=== PATIENT | male | born 1950 | race Caucasian/White ===

== ENCOUNTER 2017-01-30 18:00 | Emergency (ER) | payer MEDICARE ==
--- NOTE | 2017-02-05 13:58 | ER ---
ADMIT: 01/30/2017 RM/LOC: ER [facility] MR#: [id number] [address] [facility] [address] [place], [place] [id number] YAMILKA STORNG [address] [place] [address] Emergency Room Report SEX: M AGE: 66 : 1950 DATE: 01/30/2017 ADDENDUM: CHIEF COMPLAINT: Vertigo. HISTORY OF PRESENT ILLNESS: This is a 66-year-old male who has a history of heart disease and diabetes. He has history of having a CABG and aortic aneurysm. About 4:30 this afternoon, he had sudden onset of dizziness. He felt the room was spinning. He started vomiting. He vomited 6 times from the ER to the ER. COURSE IN THE EMERGENCY ROOM: I did give him Zofran 8 mg IV, Valium 2 mg IV, and Reglan 10 mg IV. He feels actually quite a bit better. I am prescribing him meclizine and Reglan to go home with. CT of his head was negative for any acute findings. CBC is normal except for a hemoglobin of 12.5. PT/INR normal. BMP is normal except for glucose of 177 and GFR of 56. EKG showed sinus bradycardia with a rate of 59. Bedside glucose when he first arrived was 249. CLINICAL IMPRESSION: 1. Vertigo. 2. Anemia. 3. Diabetes. DISPOSITION: Stable at discharge, and we will take meclizine and Reglan as needed. SISSY Griffith / Jose R Chatman MD / anni JOB #: [id number] CC: Rodolfo Anderson MD, Attending Physician [facility] Physician, Family Physician
== END 2017-01-30 21:40 | disposition home or self-care (01) ==
LOC: ER 18:00
DX: R42 Dizziness and giddiness (principal); D64.9 Anemia, unspecified; E11.9 Type 2 diabetes mellitus without complications; Z88.8 Allergy status to other drugs, medicaments and biological substances; Z79.899 Other long term (current) drug therapy